=== PATIENT | female | born 2000 | race Caucasian/White ===

== ENCOUNTER → 2019-09-01 | Outpatient (REF) | payer BC ==
[2019-09-01 19:45] LABS: CHLAMYDIA DNA AMPLIFICATION NEGATIVE (NEGATIVE); GC DNA AMPLIFICATION NEGATIVE (NEGATIVE)
== END ==
LOC: M SFHCLERA 11:35
PROVIDERS: ATTEND Physician Assistant
DX: N39.0 Urinary tract infection, site not specified (principal)

== ENCOUNTER → 2019-09-01 | Outpatient (CLI) | payer BC | LOC: M LRY 11:24 | PROVIDERS: ATTEND Physician Assistant | DX: R10.84 Generalized abdominal pain (principal); Z53.9 Procedure and treatment not carried out, unspecified reason ==